=== PATIENT | female | born 1960 | race Caucasian/White ===

== ENCOUNTER 2019-04-22 01:54 | Emergency (ER) | payer OTHER ==
[2019-04-22 03:12] LABS: Urine Appearance CLEAR; Urine Bilirubin NEGATIVE (NEG); Urine Blood NEGATIVE (NEG); Urine Color YELLOW; Urine Glucose NEGATIVE (NEG); Urine Protein NEGATIVE (NEG); Urine Specific Gravity 1.025 (1.005-1.030); Urine Urobilinogen 0.2 mg/dL (0.2-1.0)
[2019-04-22 03:16] LABS: Eosinophils % 1.5 % (0-4.4); Hematocrit 41.7 % (36.0-45.0); Lymphocytes % 32.4 % (15.3-44.8); MPV 8.7 fL (7.6-11.3); Monocytes % 6.1 % (3.3-12.3); RBC Red Blood Cell Count 4.59 M/uL (3.86-4.86)
[2019-04-22 03:22] LABS: Urine Microscopic Reflex NO UMIC
[2019-04-22 03:27] LABS: ALT/SGPT 15 U/L (12-78); AST/SGOT 13 U/L (15-37); Alkaline Phosphatase 74 U/L (45-117); BUN Blood Urea Nitrogen 15 mg/dL (7-18); Bicarbonate 26 mmol/L (21-32); Bilirubin Direct < 0.1 mg/dL (0-0.2); Bilirubin Total 0.3 mg/dL (0.2-1.0); Glucose Level 103 mg/dL (74-106); Lipase 226 U/L (73-393); Potassium 3.9 mmol/L (3.5-5.1); Protein, Total 7.4 g/dL (6.4-8.2); Sodium Level 140 mmol/L (136-145)
[2019-04-22 04:24] LABS: Urine Blood NEGATIVE (NEG); Urine Glucose NEGATIVE (NEG); Urine Protein NEGATIVE (NEG); Urine Specific Gravity >1.030 (1.005-1.030); Urine pH 5.5 (5.0-7.0)
[2019-04-22] MEDS ORDERED: NA CHLORIDE 0.9% 500 ML ONE (04:29)
[2019-04-22] MEDS ORDERED: KETOROLAC 30 MG/ML INJ ONE (04:29)
--- NOTE | 2019-04-22 06:21 | ER ---
Nurse's Notes [facility] Name: Zainab John Age: 58 yrs Sex: Female : 1960 Arrival Date: 04/22/2019 Time: 01:55 Bed 5 Private MD: Jay Dugan T Diagnosis: Left flank pain Presentation: 04/22 01:55 Presenting complaint: Patient states: that on the on last month she started to have left sided mid back pain. Has gotten worse over time. It is worse with movement. Transition of care: patient was not received from another setting of care. Onset of symptoms was April 11, 2019. Risk Assessment: Do you want to hurt yourself or someone else? Patient reports no desire to harm self or others. Initial Sepsis Screen: Does the patient meet any 2 criteria? No. Patient's initial sepsis screen is negative. Does the patient have a suspected source of infection? No. Patient's initial sepsis screen is negative. Care prior to arrival: Medication(s) given: Aleve at 1700. 01:55 Method Of Arrival: Ambulatory 01:55 Acuity: TRISTAN 4 Triage Assessment: 02:59 General: Behavior is calm, cooperative. ak1 Historical: - Allergies: 02:09 PENICILLINS; fc 02:09 Codeine; fc - Home Meds: 02:09 lorazepam 1 mg Oral tab 1 tab 2 times per day [Active]; metoprolol tartrate 25 mg Oral fc tab 1 tab once daily [Active]; quetiapine 200 mg oral tab 1 tab nightly [Active]; - PMHx: 02:09 rapid heart rate; insomnia; Anxiety; Depression; fc - PSHx: 02:09 None; fc - Immunization history:: Last tetanus immunization: unknown. - Social history:: Smoking status: Patient uses tobacco products, smokes one pack cigarettes per day. Patient/guardian denies using alcohol, street drugs. - Ebola Screening: : Patient negative for fever greater than or equal to 101.5 degrees Fahrenheit, and additional compatible Ebola Virus Disease symptoms Patient denies exposure to infectious person Patient denies travel to an Ebola-affected area in the 21 days before illness onset. Screenin:08 Abuse screen: Denies threats or abuse. Nutritional screening: No deficits noted. fc Tuberculosis screening: No symptoms or risk factors identified. Fall Risk None identified. Assessment: 02:58 General: Appears in no apparent distress. Pain: Complains of pain in back. Neuro: Level ak1 of Consciousness is awake, alert, obeys commands, Oriented to person, place, time, situation, Extension Service Agent are equal bilaterally Moves all extremities. Gait is steady, Speech is normal. Cardiovascular: No deficits noted. Respiratory: No deficits noted. GI: No signs and/or symptoms were reported involving the gastrointestinal system. : No signs and/or symptoms were reported regarding the genitourinary system. EENT: No signs and/or symptoms were reported regarding the EENT system. Derm: No signs and/or symptoms reported regarding the dermatologic system. Musculoskeletal: Reports pain in back. 05:59 Reassessment: Patient appears in no apparent distress at this time. Patient and/or ch family updated on plan of care and expected duration. Pain level reassessed. Patient is alert, oriented x 3, equal unlabored respirations, skin warm/dry/pink. Patient states feeling better. Patient states symptoms have improved. Vital Signs: 01:55 BP 109 / 54; Pulse 80; Resp 18; Temp 97.9(O); Pulse Ox 99% on R/A; Weight 43.54 kg (R); fc Height 5 ft. 2 in. (157.48 cm) (R); Pain 5/10; 03:41 BP 77 / 44; Pulse 70; Resp 16; Pulse Ox 98% on R/A; ak1 04:07 BP 117 / 57; Pulse 72; Resp 16; Temp 98; Pulse Ox 98% on R/A; ak1 06:27 BP 124 / 65; Pulse 76; Resp 16; Pulse Ox 94% on R/A; ak1 06:31 Temp 97.1; Pain 4/10; ch 01:55 Body Mass Index 17.56 (43.54 kg, 157.48 cm) ED Course: 01:55 Patient arrived in ED. am2 01:55 Jay Dugan MD is Private Physician. am2 01:55 Arm band placed on Patient placed in an exam room, on a stretcher. 01:57 Franco Chen MD is Attending Physician. pkl 02:07 Triage completed. 02:08 Patient has correct armband on for positive identification. Bed in low position. Call light in reach. Pulse ox on. NIBP on. 02:08 No provider procedures requiring assistance completed. 02:28 Khalida Gonzalez, RN is Primary Nurse. ak1 02:40 X-ray completed. Portable x-ray completed in exam room. Patient tolerated procedure mh1 well. 02:42 XRAY CXR (1 view) In Process Unspecified. EDMS 03:00 Initial lab(s) drawn, by nd, sent to lab. Urine collected: clean catch specimen. ak1 Inserted saline lock: 22 gauge in right antecubital area, using aseptic technique. Blood collected. 05:32 CT Abd/Pelvis - IV Contrast Only In Process Unspecified. EDMS 05:59 No apparent distress. Resting quietly. ch 05:59 Door closed. Noise minimized. Warm blanket given. ch 06:20 Jay Dugan MD is Referral Physician. pkl 06:31 IV discontinued, intact, bleeding controlled, No redness/swelling at site. Pressure ch dressing applied. Administered Medications: 04:19 Drug: NS 0.9% 500 ml Route: IV; Rate: bolus; Site: right antecubital; ak1 06:00 Follow up: IV Status: Completed infusion; IV Intake: 500ml ch 06:45 Follow up: IV Status: Completed infusion; IV Intake: 500ml ak1 04:19 Drug: TORadol 30 mg Route: IVP; Site: right antecubital; ak1 06:00 Follow up: Response: No adverse reaction; Marked relief of symptoms ch Intake: 06:00 IV: 500ml; Total: 500ml. ch 06:45 IV: 500ml; Total: 1000ml. ak1 Outcome: 06:20 Discharge ordered by . pkl 06:45 Discharged to home ambulatory, with family. ak1 06:45 Condition: improved 06:45 Discharge instructions given to patient, Instructed on discharge instructions, follow up and referral plans. no drinking with medication, no driving heavy equipment, medication usage, Demonstrated understanding of instructions, follow-up care, medications, Prescriptions given X 1. 06:46 Patient left the ED. ak1 Signatures: Dispatcher [employer] EDAZ Janine Johnson RN RN ch Lam, Pin, MD MD pkSofi Gurrola 1 Shawna Stoll RN RN Khalida Gonzalez RN RN ak1 Recinos, Jessica am2
--- NOTE | 2019-04-22 06:22 | EDPHYS ---
Physician Documentation [facility] Name: Zainab John Age: 58 yrs Sex: Female : 1960 Arrival Date: 04/22/2019 Time: 01:55 Bed 5 Private MD: Jay Dugan T ED Physician Franco Chen HPI: 04/22 02:21 This 58 yrs old Female presents to ER via Ambulatory with complaints of Back pkl Pain - Left side. 02:21 The patient presents with pain that is acute. The symptoms are located in the left pkl flank. Onset: The symptoms/episode began/occurred 10 day(s) ago. The pain does not radiate. Associated signs and symptoms: Pertinent positives: cough. Historical: - Allergies: 02:09 PENICILLINS; fc 02:09 Codeine; fc - Home Meds: 02:09 lorazepam 1 mg Oral tab 1 tab 2 times per day [Active]; metoprolol tartrate 25 mg Oral fc tab 1 tab once daily [Active]; quetiapine 200 mg oral tab 1 tab nightly [Active]; - PMHx: 02:09 rapid heart rate; insomnia; Anxiety; Depression; fc - PSHx: 02:09 None; fc - Immunization history:: Last tetanus immunization: unknown. - Social history:: Smoking status: Patient uses tobacco products, smokes one pack cigarettes per day. Patient/guardian denies using alcohol, street drugs. - Ebola Screening: : Patient negative for fever greater than or equal to 101.5 degrees Fahrenheit, and additional compatible Ebola Virus Disease symptoms Patient denies exposure to infectious person Patient denies travel to an Ebola-affected area in the 21 days before illness onset. ROS: 02:21 Eyes: Negative for injury, pain, redness, and discharge, ENT: Negative for injury, pkl pain, and discharge, Neck: Negative for injury, pain, and swelling, Cardiovascular: Negative for chest pain, palpitations, and edema. 02:21 Respiratory: Positive for cough, with clear sputum. 02:21 Abdomen/GI: Negative for nausea, vomiting, and diarrhea. 02:21 Back: Positive for flank pain, on the left. 02:21 : Negative for urinary symptoms. 02:21 MS/extremity: Negative for acute changes. 02:21 Skin: Negative for rash. 02:21 Neuro: Negative for altered mental status. Exam: 02:21 Head/Face: Normocephalic, atraumatic. Eyes: Pupils equal round and reactive to light, pkl extra-ocular motions intact. Lids and lashes normal. Conjunctiva and sclera are non-icteric and not injected. Cornea within normal limits. Periorbital areas with no swelling, redness, or edema. ENT: Nares patent. No nasal discharge, no septal abnormalities noted. Tympanic membranes are normal and external auditory canals are clear. Oropharynx with no redness, swelling, or masses, exudates, or evidence of obstruction, uvula midline. Mucous membranes moist. Neck: Trachea midline, no thyromegaly or masses palpated, and no cervical lymphadenopathy. Supple, full range of motion without nuchal rigidity, or vertebral point tenderness. No Meningismus. Chest/axilla: Normal chest wall appearance and motion. Nontender with no deformity. No lesions are appreciated. Cardiovascular: Regular rate and rhythm with a normal S1 and S2. No gallops, murmurs, or rubs. Normal PMI, no JVD. No pulse deficits. Respiratory: Lungs have equal breath sounds bilaterally, clear to auscultation and percussion. No rales, rhonchi or wheezes noted. No increased work of breathing, no retractions or nasal flaring. Abdomen/GI: Soft, non-tender, with normal bowel sounds. No distension or tympany. No guarding or rebound. No evidence of tenderness throughout. 02:21 Back: pain, that is moderate, of the left flank. 02:21 : Exam negative for acute changes. 02:21 Musculoskeletal/extremity: Exam is negative for acute changes. 02:21 Skin: Exam negative for rash. 02:21 Neuro: Orientation: is normal, Mentation: is normal, Cranial nerves: grossly normal, Motor: is normal. Vital Signs: 01:55 BP 109 / 54; Pulse 80; Resp 18; Temp 97.9(O); Pulse Ox 99% on R/A; Weight 43.54 kg (R); fc Height 5 ft. 2 in. (157.48 cm) (R); Pain 5/10; 03:41 BP 77 / 44; Pulse 70; Resp 16; Pulse Ox 98% on R/A; ak1 04:07 BP 117 / 57; Pulse 72; Resp 16; Temp 98; Pulse Ox 98% on R/A; ak1 06:27 BP 124 / 65; Pulse 76; Resp 16; Pulse Ox 94% on R/A; ak1 06:31 Temp 97.1; Pain 4/10; ch 01:55 Body Mass Index 17.56 (43.54 kg, 157.48 cm) fc MDM: 06:19 Data reviewed: vital signs, nurses notes, lab test result(s), radiologic studies, CT pkl scan. 06:20 Patient medically screened. pkl 04/22 02:21 Order name: Basic Metabolic Panel pkl 04/22 02:21 Order name: CBC with Diff pkl 04/22 02:21 Order name: Creatinine for Radiology; Complete Time: 03:47 pkl 04/22 02:21 Order name: Hepatic Function; Complete Time: 03:47 pkl 04/22 02:21 Order name: Lipase; Complete Time: 03:47 pkl 04/22 02:21 Order name: UA; Complete Time: 03:47 pkl 04/22 02:21 Order name: IV Saline Lock; Complete Time: 02:58 pkl 04/22 02:21 Order name: XRAY CXR (1 view) pkl 04/22 02:22 Order name: Basic Metabolic Panel; Complete Time: 03:47 EDMS 04/22 02:22 Order name: CBC with Automated Diff; Complete Time: 03:47 EDMS 04/22 02:57 Order name: Urine Dipstick--Ancillary (enter results) mt 04/22 03:49 Order name: CT Abd/Pelvis - IV Contrast Only pkl 04/22 02:21 Order name: Labs collected and sent; Complete Time: 02:58 pkl Administered Medications: 04:19 Drug: NS 0.9% 500 ml Route: IV; Rate: bolus; Site: right antecubital; ak1 06:00 Follow up: IV Status: Completed infusion; IV Intake: 500ml ch 06:45 Follow up: IV Status: Completed infusion; IV Intake: 500ml ak1 04:19 Drug: TORadol 30 mg Route: IVP; Site: right antecubital; ak1 06:00 Follow up: Response: No adverse reaction; Marked relief of symptoms ch Disposition: 04/22/19 06:20 Discharged to Home. Impression: Left flank pain. - Condition is Stable. - Prescriptions for Ultram 50 mg Oral Tablet - take 1 tablet by ORAL route every 8 hours As needed; 15 tablet. - Medication Reconciliation Form, Thank You Letter, Antibiotic Education, Prescription Opioid Use, Work release form form. - Follow up: Jay Dugan MD; When: 1 - 2 days; Reason: Re-evaluation by your physician. - Problem is new. - Symptoms have improved. Signatures: Dispatcher [employer] EDMS Franco Chen MD MD pkl Shawna Stoll RN RN Khalida Gonzalez RN RN ak1 Janine Johnson RN Corrections: (The following items were deleted from the chart) 06:46 06:21 04/22/2019 06:20 Discharged to Home. Impression: Left flank pain. Condition is ak1 Stable. Forms are Medication Reconciliation Form, Thank You Letter, Antibiotic Education, Prescription Opioid Use. Follow up: Jay Dugan; When: 1 - 2 days; Reason: Re-evaluation by your physician. Problem is new. Symptoms have improved. pkl
--- NOTE | 2019-04-22 08:42 | RAD REPORT ---
EXAM DESCRIPTION: RAD - Chest Single View - 04/22/2019 2:45 am CLINICAL HISTORY: Left-sided chest and back pain COMPARISON: None. TECHNIQUE: AP portable chest image was obtained 0239 hours . FINDINGS: No focal mass, consolidation or failure finding. Interstitial markings are mildly prominen t believed be baseline. Trachea is midline. Heart and vasculature are normal. No measurable pleural e ffusion and no pneumothorax. No acute bony abnormality seen. No acute aortic findings suspected. IMPRESSION: No acute cardiopulmonary process.
--- NOTE | 2019-04-23 10:51 | RAD REPORT ---
EXAM DESCRIPTION: CT - Abdomen Pelvis W Contrast - 04/22/2019 11:30 pm CLINICAL HISTORY: The patient is 58 years old and is Female; left flank pain TECHNIQUE: Axial computed tomography images of the abdomen and pelvis with intravenous contrast. S agittal and coronal reformatted images were created and reviewed. This CT exam was performed using one or more of the following dose reduction techniques: automated exposure control, adjustment of t he mA and/or kV according to patient size, and/or use of iterative reconstruction technique. COMPARISON: No relevant prior studies available. FINDINGS: LUNG BASES: Unremarkable. No mass. No consolidation. ABDOMEN: LIVER: Unremarkable. No mass. GALLBLADDER AND BILE DUCTS: No calcified stones. No ductal dilation. PANCREAS: No ductal dilation. No mass. SPLEEN: Unremarkable. ADRENALS: Unremarkable. No mass. KIDNEYS AND URETERS: Unremarkable. No solid mass. No hydronephrosis. STOMACH AND BOWEL: The stomach is distended with food contents and air. Diffuse loops of small b owel in the upper abdomen are fluid-filled and prominent. The remainder the small bowel is normal in appearance. A moderate amount of stool is present throughout the colon. There is no mucosal thickenin g or evidence of bowel obstruction. PELVIS: APPENDIX: The appendix is normal in caliber without surrounding inflammation. BLADDER: The bladder is well distended. REPRODUCTIVE: Unremarkable as visualized. ABDOMEN and PELVIS: INTRAPERITONEAL SPACE: Unremarkable. No free air. No significant fluid collection. BONES/JOINTS: No acute fracture. SOFT TISSUES: The soft tissues are normal. VASCULATURE: Unremarkable. No abdominal aortic aneurysm. LYMPH NODES: Unremarkable. No enlarged lymph nodes. IMPRESSION: Nonspecific fluid-filled prominent small bowel loop in the left abdomen which may be sec ondary to focal enteritis and ileus formation. Electronically signed by: Lois Antunez MD 04/22/2019 5:45 AM CDT Due to temporary technical issues with the PACS/Fluency reporting system, reports are being signed by the in house radiologist as a courtesy to ensure prompt reporting. The interpreting radiologist is f ully responsible for the content of the report.
== END 2019-04-22 06:46 | disposition home or self-care (01) ==
LOC: ER 01:54
DX: R10.9 Unspecified abdominal pain (principal); F41.9 Anxiety disorder, unspecified; F32.9 Major depressive disorder, single episode, unspecified; F17.210 Nicotine dependence, cigarettes, uncomplicated; Z88.0 Allergy status to penicillin; Z88.5 Allergy status to narcotic agent
CPT/HCPCS: 36415; 71045; 74177; 80048; 80076; 81003; 83690; 85025; 96361; 96374; 99284; Q9967